=== PATIENT | male | born 1980 | race Hispanic/Latino ===

== ENCOUNTER → 2023-06-02 | Emergency (ER) | payer SELFPAY ==
[~2023-06-02] MED LIST: CEPHALEXIN 250 MG CAP ONE; IBUPROFEN 400 MG TAB ONE; LIDOCAINE 1% 20 ML MDV ONE; ONDANSETRON 4 MG (ODT) TAB ONE; SMZ./TMP. 800/160 MG TABLET ONE
--- NOTE | 2023-06-02 21:46 | EDPHYS ---
Physician Documentation [facility] Name: Ceferino Tavares Age: 43 yrs Sex: Male : 1980 Arrival Date: 06/02/2023 Time: 20:05 Bed 13 Private MD: ED Physician Jose Manuel Quijano HPI: 06/02 20:29 This 43 yrs old Male presents to ER via Unassigned with complaints of Insect sp4 Bite. 21:23 Patient presents with left forearm pain swelling and tenderness. Patient reports 2 days sp4 ago he was bitten by some sort of insect and then he has developed redness, pain, tenderness swelling left upper forearm ulnar aspect. Posterior forearm now contains pus head that has drained some purulent debris. Patient denied fever denied medical allergies denied any medical problems.. Historical: - Allergies: 20:37 No Known Allergies; km8 - Home Meds: 20:37 None [Active]; km8 - PMHx: 20:37 None; km8 - PSHx: 20:37 None; km8 - Immunization history:: Client reports having NOT received the Covid vaccine. Flu vaccine is not up to date. - Social history:: Smoking status: Patient denies any tobacco usage or history of. Patient/guardian denies using alcohol, street drugs. - Family history:: not pertinent. ROS: 21:23 Constitutional: Negative for fever, chills, and weight loss, positive left forearm sp4 pain, tenderness, redness, swelling, purulent discharge 21:23 All other systems are negative, Exam: 21:23 Constitutional: This is a well developed, well nourished patient who is awake, alert, sp4 and in no acute distress. Head/Face: Normocephalic, atraumatic. Eyes: Pupils equal round and reactive to light, extra-ocular motions intact. Lids and lashes normal. Conjunctiva and sclera are not injected. Cornea within normal limits. Periorbital areas with no swelling, redness, or edema. ENT: Nares patent. No nasal discharge, no septal abnormalities noted. Tympanic membranes are normal and external auditory canals are clear. Oropharynx with no redness, swelling, or masses, exudates, or evidence of obstruction, uvula midline. Mucous membranes moist. Neck: Trachea midline, no thyromegaly or masses palpated, and no cervical lymphadenopathy. Supple, full range of motion without nuchal rigidity, or vertebral point tenderness. Chest/axilla: Normal chest wall appearance and motion. Nontender with no deformity. No lesions are appreciated. Cardiovascular: Regular rate and rhythm with a normal S1 and S2. No gallops, murmurs, or rubs. Normal PMI, no JVD. No pulse deficits. Respiratory: Lungs have equal breath sounds bilaterally, clear to auscultation and percussion. No rales, rhonchi or wheezes noted. No increased work of breathing, no retractions or nasal flaring. Abdomen/GI: Soft, with normal bowel sounds. No distension or tympany. No guarding or rebound. No evidence of tenderness throughout. Back: No spinal tenderness. No costovertebral tenderness. Skin: Warm, dry with normal turgor. Normal color with no rashes, no lesions, and no evidence of cellulitis. MS/ Extremity: Pulses equal, no cyanosis. Neurovascular intact. Full, normal range of motion. Positive left forearm pain, redness, tenderness, swelling left proximal forearm posterior aspect ulnar aspect. Neuro: Awake and alert, GCS 15, oriented to person, place, time, and situation. Cranial nerves II-XII grossly intact. Motor strength 5/5 in all extremities. Sensory grossly intact. Psych: Awake, alert, with orientation to person, place and time. Behavior, mood, and affect are within normal limits Vital Signs: 20:35 BP 99 / 67; Pulse 77; Resp 16; Temp 97.7(TE); Pulse Ox 98% on R/A; Weight 77.11 kg (R); km8 Height 5 ft. 8 in. ; Pain 8/10; 21:30 BP 106 / 72; Pulse 79; Resp 16; Pulse Ox 99% on R/A; pf1 20:35 Body Mass Index 25.85 (77.11 kg, 172.72 cm) km8 20:35 Pain Scale: Adult km8 MDM: 20:31 Patient medically screened. sp4 06/02 20:40 Order name: Gloves, Sterile; Complete Time: 21:05 sp4 06/02 20:40 Order name: Setup Suture Tray; Complete Time: 21:05 sp4 Administered Medications: 21:05 Drug: Trimethoprim-Sulfamethoxazole PO (160 mg-800 mg (DS) 1 tablet PO once Route: PO; pf1 21:51 Follow up: Response: No adverse reaction; Marked relief of symptoms pf1 21:05 Drug: Cephalexin PO 500 mg PO once Route: PO; pf1 21:51 Follow up: Response: No adverse reaction; Marked relief of symptoms pf1 21:05 Drug: Ondansetron PO 4 mg PO once Route: PO; pf1 21:51 Follow up: Response: No adverse reaction; Marked relief of symptoms pf1 21:05 Drug: Ibuprofen PO 800 mg PO once Route: PO; pf1 21:51 Follow up: Response: No adverse reaction pf1 21:52 CANCELLED (Patient Refused): lidocaine(1 %) 20 ml 20 ml Infiltration once; to bedside pf1 Disposition Summary: 06/02/23 21:45 Discharge Ordered Notes: Location: Home sp4 Problem: new sp4 Symptoms: have improved sp4 Condition: Stable sp4 Diagnosis - Cellulitis of left upper limb sp4 - Left forearm cellulitis and abscess, left forearm insect bite sp4 Followup: sp4 - With: Brando Marks DO - When: 7 - 10 days - Reason: Recheck today's complaints Discharge Instructions: - Discharge Summary Sheet sp4 - Cellulitis, Adult, [id number] sp4 Forms: - Patient Portal Instructions sp4 Prescriptions: - Cephalexin 500 mg Oral Capsule - take 1 capsule ORAL route every 6 hours for 10 days; 40 capsule; Refills: 0, sp4 Product Selection Permitted - Bactrim DS 800-160 mg Oral Tablet - take 1 tablet ORAL route every 12 hours for 10 days; 20 tablet; Refills: 0, sp4 Product Selection Permitted Signatures: Ramona Linn RN RN pf1 Jose Manuel Quijano MD MD sp4 Juliette Alvarado RN RN km8 Corrections: (The following items were deleted from the chart) 21:25 21:23 Constitutional: Negative for fever, chills, and weight loss, sp4 sp4 21:52 20:40 Lidocaine Infiltration (1 %) 20 ml 20 ml Infiltration once; to bedside ordered. pf1 sp4 : 20:40 Dressing - Wound ordered. sp4 pf1 :52 21:52 Lidocaine Infiltration (1 %) 20 ml 20 ml Infiltration once; to bedside ordered. pf1 pf1
--- NOTE | 2023-06-02 21:46 | ER ---
Nurse's Notes [facility] Name: Ceferino Tavares Age: 43 yrs Sex: Male : 1980 Arrival Date: 06/02/2023 Time: 20:05 Bed 13 Private MD: Diagnosis: Cellulitis of left upper limb;Left forearm cellulitis and abscess, left forearm insect bite Presentation: 06/02 20:35 Chief complaint: Patient states: insect bite to left forearm 2 days ago and pain km8 starting today; redness, swelling, and warmth with pus draining; denies fever at home. Coronavirus screen: Client denies travel out of the [place] in the last 14 days. Ebola Screen: No symptoms or risks identified at this time. Initial Sepsis Screen: Does the patient meet any 2 criteria? No. Patient's initial sepsis screen is negative. Does the patient have a suspected source of infection? Yes: Skin breakdown/wound. Risk Assessment: Do you want to hurt yourself or someone else? Patient reports no desire to harm self or others. Onset of symptoms was May 31, 2023. 20:35 Method Of Arrival: Ambulatory km8 20:35 Acuity: ANURAG 3 km8 Triage Assessment: 20:37 Bite description: bite sustained to palmar aspect of left forearm is from insect was km8 sustained 2 days ago. by an unknown animal. General: Appears in no apparent distress. comfortable, Behavior is calm, cooperative, appropriate for age. Pain: Complains of pain in palmar aspect of left forearm Pain currently is 8 out of 10 on a pain scale. Neuro: Level of Consciousness is awake, alert, obeys commands, Oriented to person, place, time, situation. Cardiovascular: Denies chest pain, shortness of breath. Respiratory: Airway is patent Respiratory effort is even, unlabored, Respiratory pattern is regular, symmetrical. Derm: Skin is red, Skin temperature is warm Wound noted palmar aspect of left forearm Wound is cellulitis. Musculoskeletal: Range of motion: intact in all extremities. Historical: - Allergies: 20:37 No Known Allergies; km8 - Home Meds: 20:37 None [Active]; km8 - PMHx: 20:37 None; km8 - PSHx: 20:37 None; km8 - Immunization history:: Client reports having NOT received the Covid vaccine. Flu vaccine is not up to date. - Social history:: Smoking status: Patient denies any tobacco usage or history of. Patient/guardian denies using alcohol, street drugs. - Family history:: not pertinent. Screenin:07 [facility] ED Fall Risk Assessment (Adult) History of falling in the last 3 months, pf1 including since admission No falls in past 3 months (0 pts) Confusion or Disorientation No (0 pts) Intoxicated or Sedated No (0 pts) Impaired Gait No (0 pts) Mobility Assist Device Used No (0 pt) Altered Elimination No (0 pt) Score/Fall Risk Level 0 - 2 = Low Risk Oriented to surroundings, Maintained a safe environment, Educated pt \T\ family on fall prevention, incl call for assistance when getting out of bed, Assessed \T\ reinforced patient's understanding of fall precautions, Provided non-skid footwear, Hourly rounding (assess needs \T\ fall precautionary measures) done, Used ambulatory aids as needed (educated on \T\ assisted with), Used gait belt as appropriate. Abuse screen: Denies threats or abuse. Nutritional screening: No deficits noted. Tuberculosis screening: No symptoms or risk factors identified. Assessment: 20:39 General: Appears in no apparent distress. comfortable, well groomed, well developed, pf1 Behavior is calm, cooperative, appropriate for age, quiet. 20:39 Pain: Complains of pain in palmar aspect of left forearm Pain currently is 8 out of 10 pf1 on a pain scale. Pain began 2-3 days ago. Neuro: No deficits noted. Level of Consciousness is awake, alert, obeys commands, Oriented to person, place, time, situation. Cardiovascular: No deficits noted. Capillary refill < 3 seconds Patient's skin is warm and dry. Respiratory: No deficits noted. Airway is patent Respiratory effort is even, unlabored, Respiratory pattern is regular, symmetrical. GI: No deficits noted. No signs and/or symptoms were reported involving the gastrointestinal system. : No deficits noted. No signs and/or symptoms were reported regarding the genitourinary system. EENT: No deficits noted. No signs and/or symptoms were reported regarding the EENT system. Derm: Skin is intact, Reports pain that is 8 out of 10 on a pain scale. redness with swelling to left posterior forearm, with possible bug bite. Vital Signs: 20:35 BP 99 / 67; Pulse 77; Resp 16; Temp 97.7(TE); Pulse Ox 98% on R/A; Weight 77.11 kg (R); km8 Height 5 ft. 8 in. ; Pain 8/10; 21:30 BP 106 / 72; Pulse 79; Resp 16; Pulse Ox 99% on R/A; pf1 20:35 Body Mass Index 25.85 (77.11 kg, 172.72 cm) 8 20:35 Pain Scale: Adult [facility] ED Course: 20:21 Patient arrived in ED. gm2 20:29 Jose Manuel Quijano MD is Attending Physician. sp4 20:37 Triage completed. km8 20:37 Arm band placed on right wrist. km8 20:37 Patient has correct armband on for positive identification. Bed in low position. Call pf1 light in reach. 21:07 Patient did not have IV access during this emergency room visit. pf1 21:44 Brando Marks DO is Referral Physician. sp4 21:54 Provided Education on: prescrpitons. pf1 21:54 No provider procedures requiring assistance completed. pf1 Administered Medications: 21:05 Drug: Trimethoprim-Sulfamethoxazole PO (160 mg-800 mg (DS) 1 tablet PO once Route: PO; pf1 21:51 Follow up: Response: No adverse reaction; Marked relief of symptoms pf1 21:05 Drug: Cephalexin PO 500 mg PO once Route: PO; pf1 21:51 Follow up: Response: No adverse reaction; Marked relief of symptoms pf1 21:05 Drug: Ondansetron PO 4 mg PO once Route: PO; pf1 21:51 Follow up: Response: No adverse reaction; Marked relief of symptoms pf1 21:05 Drug: Ibuprofen PO 800 mg PO once Route: PO; pf1 21:51 Follow up: Response: No adverse reaction pf1 21:52 CANCELLED (Patient Refused): lidocaine(1 %) 20 ml 20 ml Infiltration once; to bedside pf1 Medication: 21:54 VIS not applicable for this client. pf1 Outcome: 21:45 Discharge ordered by . sp4 21:53 Discharged to home ambulatory, pf1 21:53 Condition: stable 21:53 Discharge instructions given to patient, Instructed on discharge instructions, follow up and referral plans. Demonstrated understanding of instructions, follow-up care, 21:53 Prescriptions given X 2, pf1 21:54 Patient left the ED. pf1 Signatures: Ramona Linn RN RN pf1 Jose Manuel Quijano MD MD sp4 Madelyn Clark 2 Juliette Alvarado RN RN km8
[2023-06-02 22:42] VITALS: BP 99/67; TEMP 97.7; O2SAT 98
== END ==
LOC: ER 20:05
DX: L03.114 Cellulitis of left upper limb (principal)
CPT/HCPCS: 99283; J2001; Q0162